=== PATIENT | male | born 1975 | race Caucasian/White ===

== ENCOUNTER 2017-08-09 13:50 | Emergency (ER) | payer BC, OTHER ==
[2017-08-09 14:01] VITALS: BP 143/90; PULSE 83; TEMP 98; BMI 25.7
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
== END 2017-08-09 14:40 | disposition home or self-care (01) ==
LOC: JER 13:50
DX: S63.502A Unspecified sprain of left wrist, initial encounter (principal); V23.4XXA Motorcycle driver injured in collision with car, pick-up truck or van in traffic accident, initial encounter; Y92.411 Interstate highway as the place of occurrence of the external cause; Y93.39 Activity, other involving climbing, rappelling and jumping off; Y99.0 Civilian activity done for income or pay
CPT/HCPCS: 73090-TC-RT-FY; 73110-TC-RT-FY; 99281-25

== ENCOUNTER 2018-05-19 07:17 | Day surgery (SDC) | payer BC, OTHER ==
[2018-05-13 11:48] VITALS: BMI 26.4
[2018-05-19] MEDS ORDERED: LIDOCAINE HCL/PF 2% SDV 5ML VIAL ONE (08:55)
[2018-05-19] MEDS ORDERED: PROPOFOL 20 ML ONE ×2 (08:55)
[2018-05-19 09:44] VITALS: TEMP 97.6
[2018-05-19 10:00] VITALS: BP 104/53; PULSE 56
--- NOTE | 2018-05-20 17:16 | PATH ---
Surgical Pathology Report Patient Name: TRIPP NIEVES [facility]. Rec. #: [id number] /Age/Gender: 1975 (Age: 42) / M Account: [id number] Location: [facility] Taken: 05/19/2018 Received: 05/19/2018 Reported: 05/20/2018 Physicians: Dayo Valderrama M.D. Specimen(s) Received A: DUODENUM B: ANTRUM C: ANTRAL POLYP Clinical History GERD, family history of polyps Postoperative diagnosis: Duodenitis, antral polyp Final Diagnosis A. DUODENUM, BIOPSY: DUODENAL MUCOSA WITHOUT SIGNIFICANT PATHOLOGIC FINDINGS. B. ANTRUM, BIOPSY: GASTRIC ANTRAL MUCOSA WITH MILD CHRONIC GASTRITIS. IMMUNOHISTOCHEMICAL STAIN FOR H. PYLORI IS NEGATIVE. C. ANTRAL POLYP, BIOPSY: FUNDIC GLAND POLYP. IMMUNOHISTOCHEMICAL STAIN FOR H. PYLORI IS NEGATIVE. Electronically Signed Megan Drew M.D. Gross Description A. Received in formalin, labeled "duodenum" are 2 elise, irregular portions of soft tissue measuring 0.3 and 0.4 cm. in greatest dimension. The specimens are submitted in toto in one cassette. B. Received in formalin, labeled "antrum" are 2 elise, irregular portions of soft tissue measuring 0.3 and 0.4 cm. in greatest dimension. The specimens are submitted in toto in one cassette. C. Received in formalin, labeled "antral polyp" is a elise, irregular portion of soft tissue measuring 0.3 cm. in greatest dimension. The specimen is submitted in toto in one cassette. 05/19/2018 saudi05/19/2018
== END 2018-05-19 10:02 | disposition home or self-care (01) ==
LOC: FASU-ENDO 07:17
PROVIDERS: ATTEND Internal Medicine Gastroenterology
PROC: 0DB98ZX Excision of Duodenum, Via Natural or Artificial Opening Endoscopic, Diagnostic (ICD-10-PCS; 2018-05-19)
PROC: 0DB68ZX Excision of Stomach, Via Natural or Artificial Opening Endoscopic, Diagnostic (ICD-10-PCS; 2018-05-19)
PROC: 0DJD8ZZ Inspection of Lower Intestinal Tract, Via Natural or Artificial Opening Endoscopic (ICD-10-PCS; principal; 2018-05-19 08:59)
DX: Z12.11 Encounter for screening for malignant neoplasm of colon (principal); K29.50 Unspecified chronic gastritis without bleeding; K31.7 Polyp of stomach and duodenum; K20.9 Esophagitis, unspecified; K44.9 Diaphragmatic hernia without obstruction or gangrene; Z80.0 Family history of malignant neoplasm of digestive organs
CPT/HCPCS: 88305-TC; 88342-TC

== ENCOUNTER 2020-02-14 09:43 | Emergency (ER) | payer BC | END 2020-02-14 10:49 | disposition home or self-care (01) | LOC: JVIRT 09:43 | DX: R50.9 Fever, unspecified (principal); U07.1 COVID-19 | CPT/HCPCS: C9803; Q3014-GT; U0003 ==

== ENCOUNTER 2020-05-24 11:02 | Emergency (ER) | payer BC ==
[2020-05-24] MEDS ORDERED: KETOROLAC TROMETHAMINE 30 MG/1 ML VIAL IVPUSH ONE (11:22)
[2020-05-24] MEDS ORDERED: LACTATED RINGERS SOLUTION 1000 ML INFUS.BAG IV ONE (11:22)
[2020-05-24] MEDS ORDERED: KETOROLAC TROMETHAMINE 30 MG/1 ML VIAL ONE (11:25)
[2020-05-24 11:29] VITALS: TEMP 98.6; BMI 26.1
[2020-05-24] MEDS ORDERED: HYDROmorphone HCL CARPU-JECT 1 MG/1 ML DISP.SYRIN IVPUSH ONE ×2 (11:39→12:30)
[2020-05-24] MEDS ORDERED: ONDANSETRON 4 MG/2 ML VIAL IVPUSH ONE (11:40)
[2020-05-24] MEDS ORDERED: ONDANSETRON 4 MG/2 ML VIAL ONE ×2 (11:42→14:23)
[2020-05-24] MEDS ORDERED: HYDROmorphone HCL/PF 1 MG/ML VIAL ONE ×2 (11:42→12:39)
[2020-05-24 11:52] LABS: MONO % 13.4 % (3.8-10.2); WHITE BLOOD COUNT 5.7 K/mm3 (4.0-10.8)
[2020-05-24 11:54] LABS: EOS % 0.6 % (0-4.5); HEMATOCRIT 47.6 % (35.4-49); HEMOGLOBIN 16.4 GM/dl (11.7-16.9); MCH 30.6 pg (25.7-33.7); MCHC 34.4 g/dl (32.0-35.9); MEAN PLT VOLUME 9.9 fl (7.5-11.1); PLATELET COUNT 206 K/MM3 (134-434); RBC 5.35 M/mm3 (4.00-5.60); RDW 12.6 % (11.9-15.9)
[2020-05-24 12:00] LABS: ALBUMIN 4.3 g/dl (3.4-5.0); BILIRUBIN,TOTAL 1.3 mg/dl (0.2-1); CALCIUM 9.4 mg/dl (8.5-10); CREATININE 1.1 mg/dl (0.55-1.3); POTASSIUM 4.4 mmol/L (3.5-5.1); TOT PROT 7.7 g/dl (6.4-8.2)
[2020-05-24] MEDS ORDERED: METOCLOPRAMIDE HCL INJECTION 10 MG/2 ML VIAL IVPUSH ONE (12:22)
[2020-05-24] MEDS ORDERED: METOCLOPRAMIDE HCL INJECTION 10 MG/2 ML VIAL ONE (12:25)
[2020-05-24 15:19] VITALS: BP 133/71; PULSE 59
== END 2020-05-24 15:19 | disposition home or self-care (01) ==
LOC: FER 11:02
PROC: 3E033GC Introduction of Other Therapeutic Substance into Peripheral Vein, Percutaneous Approach (ICD-10-PCS; principal; 2020-05-24)
PROC: 3E033GC Introduction of Other Therapeutic Substance into Peripheral Vein, Percutaneous Approach (ICD-10-PCS; 2020-05-24)
PROC: 3E0333Z Introduction of Anti-inflammatory into Peripheral Vein, Percutaneous Approach (ICD-10-PCS; 2020-05-24)
PROC: 3E033GC Introduction of Other Therapeutic Substance into Peripheral Vein, Percutaneous Approach (ICD-10-PCS; 2020-05-24)
PROC: 3E033GC Introduction of Other Therapeutic Substance into Peripheral Vein, Percutaneous Approach (ICD-10-PCS; 2020-05-24)
DX: N20.0 Calculus of kidney (principal)
CPT/HCPCS: 36415; 74176-TC; 80053; 81003; 81015; 85025; 87086; 99285-25

== ENCOUNTER 2021-05-09 13:58 | Emergency (ER) | payer BC ==
[2021-05-09 14:22] VITALS: BP 122/75; PULSE 110; TEMP 98.2; BMI 26.4
[2021-05-09] MEDS ORDERED: SODIUM CHLORIDE 0.9% 500 ML INFUS.BAG IV ONE (14:26)
[2021-05-09 15:13] LABS: ALBUMIN 3.6 g/dl (3.4-5.0); BILIRUBIN,TOTAL 0.9 mg/dl (0.2-1); CALCIUM 9.1 mg/dl (8.5-10); CREATININE 0.8 mg/dl (0.55-1.3); PHOSPHOROUS 3.6 mg/dl (2.5-4.9); TOT PROT 6.2 g/dl (6.4-8.2)
[2021-05-09 15:15] LABS: INR 1.04 (0.83-1.09)
[2021-05-09 15:18] LABS: ACTIVATED PTT 35.5 SECONDS (25.2-36.5)
[2021-05-09 16:13] LABS: BASO % 0.3 % (0-2.0); EOS % 0.8 % (0-4.5); HEMATOCRIT 45.6 % (35.4-49); HEMOGLOBIN 15.4 GM/dL (11.7-16.9); LYMPH % 32.9 % (8-40); MCH 29.9 pg (25.7-33.7); MCHC 33.7 g/dl (32.0-35.9); MEAN CELL VOLUME 88.7 fl (80-96); MONO % 10.7 % (3.8-10.2); NEUT % 55.3 % (42.8-82.8); PLATELET COUNT 199 10^3/uL (134-434); RBC 5.14 M/mm3 (4.00-5.60); RDW 13.3 % (11.9-15.9); WHITE BLOOD COUNT 4.8 K/mm3 (4.0-10.0)
[2021-05-09] MEDS ORDERED: metoPROLOL SUCCINATE 25 MG TAB.SR.24H (FP) PO ONE (16:32)
[2021-05-09] MEDS ORDERED: ASPIRIN 81 MG CHEWABLE TABLETS ONE (16:41)
[2021-05-09] MEDS ORDERED: metoPROLOL SUCCINATE 25 MG TAB.SR.24H (FP) ONE (16:42)
[2021-05-10] MEDS ORDERED: ASPIRIN 81 MG CHEWABLE TABLETS PO ONE (16:33)
== END 2021-05-09 17:33 | disposition home or self-care (01) ==
LOC: FER 13:58
DX: I48.91 Unspecified atrial fibrillation (principal)
CPT/HCPCS: 36415; 71045-TC-FY; 80053; 83735; 84100; 84439; 84443; 84484; 85025; 85610; 85730; 93005; 99285-25